=== PATIENT | female | born 1985 | race Caucasian/White ===

== ENCOUNTER 2016-12-14 22:32 | Emergency (ER) | payer MEDICAID, OTHER ==
[~2016-12-14] VITALS: Ht 165.1 cm; Wt 75.7 kg
[~2016-12-14 22:32] MED LIST: ALBU2.5V13 NEB; CEPH-570 PO; DOCU-25 PO; HYDR-3326 PO
--- NOTE | 2016-12-14 22:54 | NUR ---
PT PRESENTED TO THE ER WITH A C/O RLQ ABD PAIN. PT STATED THAT SHE HAS HAD THIS PAIN ON AND OFF FOR 2 MONTHS AND THE PAIN IS UNBEARABLE TONIGHT. PT AMBULATED TO BED #12 WITH A STEADY GAIT. URINE SAMPLE WAS OBTAINED AND LAB CALLED FOR P/U. PT IS GUARDING RT SIDE OF ABD. PT WAS CHANGED IN TO A GOWN AND IS AWAITING EVAL BY .
--- NOTE | 2016-12-14 22:56 | NUR ---
Ramakrishna MENDES NP AT THE BEDSIDE EVALUATING THE PT.
--- NOTE | 2016-12-14 23:03 | NUR ---
CALLED RADIOLOGY DEPARTMENT TO INFORM THEM OF APPENDIX AND OVARIES US
--- NOTE | 2016-12-14 23:14 | NUR ---
COPY TECHNICIAN AT BEDSIDE. BLOOD DRAW DONE AT THE BEDSIDE.
[2016-12-14 23:24] LABS: BASOPHILS % (AUTO) 0.5 % (0.0-2.0); EOSINOPHILS # (AUTO) 0.4 /CMM (0.0-0.7); EOSINOPHILS % (AUTO) 3.8 % (0.0-6.0); HEMATOCRIT 38 % (33-45); HEMOGLOBIN 12.7 g/dL (11.5-14.8); LYMPHOCYTES # (AUTO) 2.7 /CMM (0.8-4.8); LYMPHOCYTES % (AUTO) 28.4 % (20.0-44.0); MEAN CORPUSCULAR HEMOGLOBIN 27 PG (26.0-33.0); MEAN CORPUSCULAR HGB CONC 34 g/dl (31.0-36.0); MEAN CORPUSCULAR VOLUME 81 fL (82-100); MONOCYTES # (AUTO) 0.6 /CMM (0.1-1.30); MONOCYTES % (AUTO) 6.2 % (2.0-12.0); NEUTROPHILS # (AUTO) 5.8 /CMM (1.8-8.9); NEUTROPHILS % (AUTO) 61.1 % (43.0-81.0); PLATELET COUNT (AUTO) 277 /CMM (150-450); RED BLOOD CELL COUNT(AUTO) 4.63 MIL/uL (4.0-5.2); WHITE BLOOD COUNT (AUTO) 9.5 K/uL (4.3-11.0)
[2016-12-14] MEDS ORDERED: ONDANSETRON 4 MG TAB.RAPDIS ONE (23:26)
[2016-12-14] MEDS ORDERED: HYDROCODONE/APAP 5/325MG 1 EACH TABLET ONE (23:26)
[2016-12-14] MEDS ORDERED: HYDROCODONE/APAP 5/325MG 1 EACH TABLET PO ONE (23:30)
[2016-12-14] MEDS ORDERED: ONDANSETRON 4 MG TAB.RAPDIS SL ONE (23:30)
[2016-12-14 23:40] LABS: CALCIUM, SERUM 8.8 mg/dL (8.5-10.1); CREATININE 0.8 mg/dL (0.6-1.3); POTASSIUM 3.7 mmol/L (3.5-5.1)
[2016-12-14 23:43] LABS: BILIRUBIN,DIRECT 0.1 mg/dL (0.0-0.2); BILIRUBIN,TOTAL 0.4 mg/dL (0.2-1.0); TOTAL PROTEIN, SERUM 7.5 g/dL (6.4-8.2)
[2016-12-14 23:44] LABS: INR 0.95 (0.87-1.13); PROTHROMBIN TIME 10.1 SECS (9.5-12.7)
[2016-12-15 00:11] LABS: APPEARANCE,URINE SL CLOUDY (CLEAR); BILIRUBIN,URINE NEGATIVE (NEGATIVE); BLOOD, URINE 3+ Ery/uL (NEGATIVE); COLOR,URINE YELLOW (YELLOW); KETONES,URINE NEGATIVE (NEGATIVE); LEUKOCYTE ESTERASE ,URINE NEGATIVE (NEGATIVE); NITRITE, URINE NEGATIVE (NEGATIVE); PROTEIN,URINE 2+ mg/dl (NEGATIVE); UGLUCOSE NEGATIVE (NEGATIVE)
--- NOTE | 2016-12-15 00:20 | NUR ---
PT MOVED TO THE PARTY HOST/HOSTESS ROOM.
--- NOTE | 2016-12-15 00:21 | NUR ---
PELVIC EXAM DONE BY Monica MENDES NP.
--- NOTE | 2016-12-15 00:27 | NUR ---
ANA PETERSON, AT THE BEDSIDE.
[2016-12-15 00:29] LABS: ADD URINE CULTURE NO; BACTERIA,URINE None seen /HPF (None Seen); RBC,URINE 81-100 /HPF (0-2); SQUAMOUS EPITHELIAL CELL,UR Few /HPF (None Seen); WBC,URINE 0-2 /HPF (0-3)
--- NOTE | 2016-12-15 00:54 | NUR ---
US FINISHED. PT RETURNED TO BED #12.
--- NOTE | 2016-12-15 01:13 | NUR ---
PT APPEARS TO BE RESTING COMFORTABLY WITH NO S/S OF PAIN OR DISTRESS.
--- NOTE | 2016-12-15 01:20 | NUR ---
STARTED 20G IV IN LFA.
--- NOTE | 2016-12-15 01:31 | NUR ---
DR. LUJAN CALLED FOR UROLOGY CONSULT.
[2016-12-15] MEDS ORDERED: TAMSULOSIN 0.4 MG CAP.SR.24H PO ONE (02:00)
[2016-12-15] MEDS ORDERED: TAMSULOSIN 0.4 MG CAP.SR.24H ONE (02:09)
--- NOTE | 2016-12-15 02:20 | NUR ---
CALLED [facility] TRANSFER LINE ([phone]), SPOKE WITH DAMASO LOPEZ. NO UROLOGY AVAILABLE AT [facility]; HOWEVER, JESSICA STATED UROLOGY MAY BE AVAILABLE AT A HOSPITAL IN [place]. CALL TRANSFERED TO DR. OSCAR.
--- NOTE | 2016-12-15 02:22 | NUR ---
SPOKE TO DAMASO RAO/PAXTON GANG HEMSTITCHING MACHINE OPERATOR AT [facility]. THEY DO NOT HAVE UROLOGY WINDOW CUTTER.
[2016-12-15 02:30] VITALS: BP 104/62
--- NOTE | 2016-12-15 02:30 | NUR ---
CALLED [facility], SPOKE TO TRANSFER STRUCTURAL STEEL WORKER APPRENTICEREP ROY, UNABLE TO TAKE PATIENTS AT THIS TIME. INFORMED TO CALL BACK IN 20 MINS.
--- NOTE | 2016-12-15 02:33 | NUR ---
PT APPEARS TO BE RESTING COMFORTABLY WITH NO S/S OF PAIN OR DISTRESS. PT IS ON THE MONITOR AND CONTINUOUS PULSE OX. PT'S IS AT THE BEDSIDE AND BOTH ARE WATCHING TV.
--- NOTE | 2016-12-15 02:45 | NUR ---
CALLED [facility], SPOKE TO INGRID LOJA. [phone]. NO UROLOGIST AVAILABLE.
--- NOTE | 2016-12-15 02:53 | NUR ---
DR. OSCAR IS SPEAKING TO THE UROLOGIST AT [facility].
--- NOTE | 2016-12-15 02:53 | NUR ---
UROLOGIST AT [facility] IS DR. ABEL.
--- NOTE | 2016-12-15 02:57 | NUR ---
Note audra in EDM - 12/15/[address] OSCAR IS SPEAKING WITH DR. RALPH, [facility].
--- NOTE | 2016-12-15 02:57 | NUR ---
DR. OSCAR IS SPEAKING WITH DR. GEE, [facility].
--- NOTE | 2016-12-15 02:59 | NUR ---
[facility] HAS ACCEPTED THE PT.
--- NOTE | 2016-12-15 03:00 | NUR ---
PT ACCEPTED BY DR. JERI GEE AT [facility] ER. NUMBER FOR REPORT: FAX:
--- NOTE | 2016-12-15 03:10 | NUR ---
CALLED [facility] RE: TRANSFER OF PT TO [facility]. NO AVAILABLE AMBULANCE/RESOURCES
--- NOTE | 2016-12-15 03:25 | NUR ---
PT MOVED TO ROOM #6. PT'S LEFT AND WILL RETURN LATER. PT IS AWAITING TRANSFER TO [facility] AT 0645
--- NOTE | 2016-12-15 03:50 | NUR ---
PT IS ON THE MONITOR AND CONTINUOUS PULSE OX. NO ACUTE DISTRESS NOTED. CALL LIGHT IN REACH. WILL CONTINUE TO MONITOR THE PT.
--- NOTE | 2016-12-15 04:50 | NUR ---
PT APPEARS TO BE SLEEPOING SOUNDLY WITH NO S/S OF PAIN OR DISCOMFORT. CALL LIGHT IN REACH. WILL CONTINUE TO MONITOR THE PT.
--- NOTE | 2016-12-15 06:21 | NUR ---
RECEIVED CALL FROM MATTY OGDEN [facility] WHO REQUESTED AUTHORIZATION NUMBER FROM INSURANCE. SPOKE WITH LEATHA SUEROADVENTURE THERAPIST WHO AUTHORIZED TRANSPORTION OF THE PT AFTER SPEAKING WITH NURSE TRANSPLANT.
--- NOTE | 2016-12-15 06:32 | NUR ---
[facility] ETA: [id number]
--- NOTE | 2016-12-15 07:05 | NUR ---
REPORT GIVEN TO DAMASO WHEELER FOR [facility].
[2016-12-15] MEDS ORDERED: HYDROCODONE/APAP 5/325MG 1 EACH TABLET ONE (07:26)
[2016-12-15] MEDS ORDERED: HYDROCODONE/APAP 5/325MG 1 EACH TABLET PO ONE (07:30)
--- NOTE | 2016-12-15 07:45 | NUR ---
REPORT GIVEN TO RAMU PETIT FROM [facility]
--- NOTE | 2016-12-15 07:45 | NUR ---
PT LEAVING VIA AMBULANCE IN STABLE CONDITION TO [facility]. NAD NOTED. PT AMBULATORY WITH STEADY GAIT. VSS. REPORT GIVEN TO EMT. ALL FORMS GIVEN. NO FURTHER COMPLAINTS.
== END 2016-12-15 07:55 | disposition short-term general hospital (02) ==
LOC: ER 22:38
DX: N13.2 Hydronephrosis with renal and ureteral calculous obstruction (principal); Z90.49 Acquired absence of other specified parts of digestive tract
CPT/HCPCS: 36415; 74176; 76856; 80048; 80076; 81001; 84703; 85025; 85730; 87070; 87081; 87110; 87210; 87491; 87591; 99285; A4606 ×2; Q0162; Z7610 ×2; 81000-TC

== ENCOUNTER → 2019-04-27 | Emergency (ER) | payer OTHER ==
[~2019-04-27] MED LIST changes: +DOCU-141 PO; -DOCU-25 PO; -HYDR-3326 PO; +HYDR-3974 PO
--- NOTE | 2019-04-27 16:15 | NUR ---
CALLED TO TRIAGE NO ANSWER
--- NOTE | 2019-04-27 16:20 | NUR ---
NOT IN WAITING ROOM; CALLED TO BE TRIAGED
== END | disposition left against medical advice (07) ==
LOC: ER 16:15
DX: Z53.21 Procedure and treatment not carried out due to patient leaving prior to being seen by health care provider (principal)